=== PATIENT | male | born 1945 | race Caucasian/White ===

== ENCOUNTER 2022-09-09 16:01 | Outpatient (REF) | payer MEDICARE, SELFPAY ==
[2022-09-09 16:54] LABS: Anion Gap 10 (12-20); Blood Urea Nitrogen 16 mg/dL (9-16); Calcium 8.9 mg/dL (8.4-10.2); Carbon Dioxide 25 mmol/L (22-29); Chloride 108 mmol/L (96-108); Estimated Glomerular Filt Rate > 60; Potassium 3.7 mmol/L (3.3-5.1); Sodium 139 mmol/L (135-145)
== END 2022-09-09 16:02 | disposition home or self-care (01) ==
LOC: HO.LAB 16:01
PROVIDERS: PCP Internal Medicine; Visit Provider Internal Medicine Nephrology
DX: E87.1 Hypo-osmolality and hyponatremia (principal)
CPT/HCPCS: 36415; 80051; 82310; 82565; 84520

== ENCOUNTER 2023-03-03 15:52 | Outpatient (REF) | payer MEDICARE, SELFPAY ==
[2023-03-03 17:26] LABS: Anion Gap 10 (12-20); Blood Urea Nitrogen 12 mg/dL (9-16); Calcium 9.1 mg/dL (8.4-10.2); Carbon Dioxide 26 mmol/L (22-29); Chloride 101 mmol/L (96-108); Estimated Glomerular Filt Rate > 60; Glucose Random 86 mg/dL (60-115); Potassium 4.3 mmol/L (3.3-5.1); Sodium 133 mmol/L (135-145)
[2023-03-03 17:56] LABS: Folate 11.6 ng/mL (> or = 4.0); T4 Thyroxine 7.1 ug/dL (4.5-12.0); Thyroid Stimulating Hormone 1.32 uIU/mL (0.32-4.0); Vitamin B12 330 pg/mL (200-900)
[2023-03-08 07:32] LABS: Vitamin B1 18 nmol/L (8-30)
== END 2023-03-03 15:53 | disposition home or self-care (01) ==
LOC: HO.LAB 15:52
PROVIDERS: Visit Provider Psychiatry & Neurology Neurology
DX: G31.84 Mild cognitive impairment of uncertain or unknown etiology (principal)
CPT/HCPCS: 36415; 80048; 82607; 82746; 84425; 84436; 84443

== ENCOUNTER 2023-07-22 13:53 | Outpatient (REF) | payer MEDICARE, SELFPAY ==
[2023-07-22 15:00] LABS: Anion Gap 12 (12-20); Carbon Dioxide 25 mmol/L (22-29); Chloride 101 mmol/L (96-108); Potassium 4.4 mmol/L (3.3-5.1); Sodium 134 mmol/L (135-145)
== END 2023-07-22 13:54 | disposition home or self-care (01) ==
LOC: HO.LAB 13:53
PROVIDERS: PCP Internal Medicine; Visit Provider Psychiatry & Neurology Neurology
DX: G31.84 Mild cognitive impairment of uncertain or unknown etiology (principal)
CPT/HCPCS: 36415; 80051

== ENCOUNTER 2025-08-04 12:28 | Outpatient (AMB) | payer MEDICARE, SELFPAY ==
--- OUTSIDE RECORDS SUMMARY | 2024-03-02 08:00 | XMS_ITS ---
Author Organization [facility] Address [address] [place] [address] Care Team Providers Care Event Marketing Specialist Name Role Phone Caitlin Mccain MD Primary Care Provider Dave Munoz Unavailable [phone] Encounters Encounter Location Date Provider Diagnosis [facility] [address] [place] [address] 03/02/2024 Dave Barreto Plan Of Treatment Next Appt Details Provider Name:Dave Barreto , 11/10/2025 01:30:00 PM, [address] [facility], [place] [address], [place], [address], Progress Notes * Rick XIONG IIIDOB:12/1944 (79 yo M)Acc No.[id number]:03/02/2024 Progress Note Patient: Rick CESPEDES III Provider: Roma Barreto DPM :1945 A ge:78 Y S ex:Male Date:03/02/2024 Address:[address] [facility] Pcp:Caitlin Mccain MD Subjective: * Chief Complaints: * * Medical History: Objective: * Vitals: Assessment: Plan: * Treatment: * Images: * The named appointment provid er may or may not be the originator of this progress note, and it is not deemed complete until electronically signed by the appointment provider. Sign off status: Pending * Provider: Roma Barreto DPM Date: 0 03/02/2024 Generated for Pramod bey/Raúl/Carolyn on: 1 10/04/2024 03:17 PM EST
--- NOTE | 2025-08-04 13:05 | A.OFFVIS_ITS ---
Intake Visit Reasons: 6m Accompanied by: Spouse Allergies No Known Allergies Allergy (Verified 08/04/25 13:09) Medication List - Last Reconciled 08/04/25 by Tashia Mark CNP amlodipine 5 mg PO DAILY losartan 100 mg PO DAILY losartan 50 mg PO DAILY HPI Comments Details: He was here with his . She thought his memory may be getting a bit worse. He could be more forgetful and had trouble with dates and appointments, but he was managing the finances and there were no issues. He noted that he could be forg etful at times, especially with dates. He was staying busy with yard work and enjoyed doing puzzles. No falls. Sleep was okay, using CPAP. Drinking about 6 beers/day. He cut his drinking down to average 2- 3 glass of wine or beer from 10 cans of beer a day for the last 30 years. In April 2022, he fell and hit his head and was seen at [facility] where he was found to have low sodium. That was corrected and he was put on divalproex for mood stabilization. His sodium has been fine and blood pressure has been under control. He has had periods where he does not feel mentally clear, has periods of confusion and disorientation that come and go, and does not always keep track of time. He is a retired, lives at home and does some yard work and helps the in the house. [facility] Medical History (Updated 08/04/25 @ 13:07 by Tashia Mark CNP) Hyponatremia Review of Systems Const Denies chills, Denies daytime sleepiness, Denies difficulty sleeping, Denies fatigue, Denies fever(s), Denies frequent falls, Denies headache(s), Denies increased appetite, Denies poor appetite, Denies snoring, Denies weakness, Denies weight gain and Denies weight loss Eyes Denies loss of vision ENT Denies vertigo, Denies dizziness, Denies headache(s) and Reports neck pain Card Denies chest pain at rest, Denies chest pain with activity, Denies syncope, Denies leg edema, Denies palpitations, Denies dyspnea and Denies dyspnea on exertion Resp Denies cough, Denies dyspnea, Denies dyspnea on exertion and Denies snoring GI Denies abdominal pain, Denies constipation, Denies heartburn, Denies diarrhea and Denies nausea Denies urinary frequency, Denies urinary incontinence and Denies urinary urgency Musc Denies abnormal gait, Denies back pain, Denies myalgias, Denies arthralgias, Reports neck pain, Denies numbness and Denies tingling Neuro Denies abnormal gait, Denies vertigo, Denies dizziness, Denies syncope, Denies frequent falls, Denies headache(s), Denies lack of coordination, Denies loss of vision, Reports memory loss, Denies numbness, Denies Other visual disturbances, Denies restless legs, Denies seizure-like activity, Denies tingling, Denies paresthesias, Denies tremor(s) and Denies weakness Psych Denies anxiety, Denies depression, Denies auditory hallucinations, Reports memory loss and Denies visual hallucinations Endo Denies fatigue and Denies palpitations Physical Exam Const Other: General Appearance:? normal, in no acute distress. Heart:? S1, S2 normal, no murmurs. Lungs:? clear anteriorly and posteriorly. Musculoskeletal:? normal. Extremities:? no edema. Psych:? alert, as below. Neuro Other: Abnormal Neurological Findings:?MMSE 29/30 Mental Status: alert, as below. Cranial Nerves: Pupils are equal, round, and reactive to light. External ocular muscles are intact. Visual reyes are full, no ptosis. Face is symmetrical, no facial weakness or droop. Facial sensations are normal. Tongue protrudes in midline. Palate elevates symmetrically. Shoulder shrugging is normal Motor Examination: Normal muscle tone, bulk and strength. No atrophy or fasciculations. No drift of the extended upper extremities. DTR 2+. Plantars are flexor. Sensory Exam: Normal light touch, temperature, pinprick, vibration, and joint- position sensations. Rhomberg sign is absent. Coordination: No ataxia. No titubation. Gait Exam: Within normal limits. Cerebellar Signs: Lrasuv-fn-ebrs is okay. Extrapyramidal System: No tremor, rigidity with normal facial expressions. No bradykinesia. No bradyphrenia. Normal arm swing and posture. No propulsion or retropulsion. Speech: Normal. MMSE Level of Consciousness: Alert. Orientation: Knows correct year, month, day and season. Not date. Knows correct city, county and state. Knows correct location and floor. Registration: Able to register 3 objects. Attention: Serial 7's performed accurately to 65. Recall: Able to recall 3 out of 3 objects. Language: Normal spontaneous speech, fluency, repetition, naming, comprehension, reading, and writing. Total Score: 29/30. Results Reviewed Results Reviewed: 03/07/23 EEG- WNL 07/24/23 Labs : Low sodium of 134. CT shows mild diffuse volume loss. Assessment & Plan Assessment & Plan (1) MCI (mild cognitive impairment): Code(s): G31.84 - Mild cognitive impairment of uncertain or unknown etiology Category: Medical Plan: Discussed option to start medication (such as donepezil), declining at this time. Limit/avoid alcohol use. Stay physically, socially, and intellectually active. (2) Alcohol use disorder: Code(s): F10.90 - Alcohol use, unspecified, uncomplicated Category: Medical Plan . Coding Level of Care Code Est Pt Level 4 (76121) Diagnoses MCI (mild cognitive impairment) G31.84 Alcohol use disorder F10.90
--- OUTSIDE RECORDS SUMMARY | 2025-08-04 15:17 | XMS_ITS ---
Author Organization [facility] on Care Team Providers Care Glassine Machine Tender Name Role Phone Devora Flanagan Unavailable Unavailable Shae Chang Unavailable Unavailable Tevin Chavis Unavailable Unavailable Isaac Smith Unavailable Unavailable Leatha Almendarez Unavailable Unavailable Abdullahi Lizette Unavailable Unavailable Allergies and adverse reactions No Known Allergies Care Team Name Role Address Phone Organization Dates Isaac Smith PCP [address], [address], [place] (Office): : [facility] 05/31/2022 - 06/04/2022 Devora Flanagan [address] [place], [place], [facility], [place] States (Office): [phone] [facility] 05/31/2022 - 06/04/2022 Shae Chang [address] [place] [address], [address], [place] (Office): [facility] 05/31/2022 - 06/04/2022 Tevin Chavis [address] [place] [address], [address], [place] (Office): [facility] 05/31/2022 - 06/04/2022 Leatha Almendarez [address] [place] [address], [place], [address], [facility] (Office): : [facility] [place] 05/31/2022 - 06/04/2022 Lizette Fernando [address] [place] [address] [address], [place], [address], [facility] (Office): : [facility] 05/31/2022 - 06/04/2022 Immunizations Immunization Status Vaccine Details Vaccine Code CodeSystem Arsen e Notes SARS-COV-2 (COVID-19) completed SARS-COV-2 (COVID-19) vaccine, mRNA, spike protein, LNP, bivalent, preservative free, 50 mcg/0.5 mL or 25 mcg/0.25 mL dose Mfg: Moderna Step 2 of Multi-step with next step required 229 CVX created date: 05/31/2022 administered date: 11/28/2020 SARS-COV-2 (COVID-19) completed SARS-COV-2 (COVID-19) vaccine, D614, prefusion spike recombinant protein subunit (CoV2 preS dTM), AS03 adjuvant added, preservative free, 5mcg/0.5mL dose Mfg: Moderna Step 1 of Multi-step with next step required 225 CVX created date: 05/31/2022 administered date: 10/31/2020 SARS-COV-2 (COVID-19 BOOSTER) completed SARS-COV-2 (COVID-19) vaccine, mRNA, spike protein, LNP, preservative free, 100 mcg/0.5mL dose or 50 mcg/0.25mL dose Mfg: Moderna 207 CVX created date: 05/31/2022 administered date: 01/01/2022 SARS-COV-2 (COVID-19 BOOSTER) completed SARS-COV-2 (COVID-19) vaccine, mRNA, spike protein, LNP, preservative free, 100 mcg/0.5mL dose or 50 mcg/0.25mL dose Mfg: Moderna 207 CVX created date: 05/31/2022 administered date: 06/14/2021 Mental Status Section Date Assessment Total Score Description 06/04/2022 BIMS 11 moderate cognit alec impairment CAM 0 No delirium ind icated Insurance Providers Problems Problem # Description Date of onset Resolved Date Code CodeSystem Concern Status 1 ALCOHOL USE, UNSPECIFIED WITH ALCOHOL-INDUCED PERSISTING AMNESTIC DISORDER 06/04/[address] active 2 HYPO-OSMOLALITY AND HYPONATREMIA 06/04/[address] active 3 METABOLIC ENCEPHALOPATHY 06/04/[address] active 4 ALCOHOL DEPENDENCE, UNCOMPLICATED 05/31/[address] active 5 ESSENTIAL (PRIMARY) HYPERTENSION 05/31/[address] active 6 FALL ON SAME LEVEL FROM SLIPPING, TRIPPING AND STUMBLING WITHOUT SUBSEQUENT STRIKING AGAINST OBJECT, SUBSEQUENT ENCOUNTER 05/31/[address] active 7 HISTORY OF FALLING 05/31/[address] active 8 IMMUNE THROMBOCYTOPENIC PURPURA 05/31/[address] active 9 LOW BACK PAIN, UNSPECIFIED 05/31/[address] active Reason for Referral No Reasons for Referral Entered Social History Social History Observation Description Start Date End Date Code Code System Current Smoking Status Tobacco smoking consumption unknown 595733498 SNOMED CT Sex Assigned At Male 1945 [address]18-8 [facility] Gender Identity Sexual Orientation Vital Signs Code Code System Vitals Name Values and Units Timing Information 48840-1 [facility] Pain Level Value=0.0 06/04/2022 8462-4 LOINC Blood Pressure-Diastolic Value=66 Un its=mmHg 06/03/2022 8480-6 LOINC Blood Pressure-Systolic Vdovw=172 Un its=mmHg 06/03/2022 9279-1 LOINC Respiratory Rate Value=18.0 Units=/m in 06/03/2022 8310-5 LOINC Body Temperature Value=97.9 Units= F 06/03/2022 8867-4 LOINC Heart rate Value=79.0 Units=/min 01/2022 01786-9 LOINC O2 % BldC Oximetry Value=96.0 Units= % 06/03/2022 92140-8 LOINC Weight Zztdb=913.0 Units=Lbs 10/2021 8302-2 LOINC Height Value=73.0 Units=Inches 05/31/2022
--- OUTSIDE RECORDS SUMMARY | 2025-08-04 15:17 | XMS_ITS | Clinical Summary ---
Author Organization [facility] Address [address] [address] Phone Care Team Providers Care Commercial Property Manager Name Role Phone Aaron Rosario MD Primary Care Provider [phone] Allergies Active Allergy Reactions Criticality Noted Date Comments Sulfamethoxazole-Trimethoprim 2015 Severe rash Medications atenolol (TENORMIN) 50 mg tablet 2 Active losartan (COZAAR) 25 MG tablet Take 100 mg by mouth daily. 2 Active cyclobenzaprine (FLEXERIL) 5 MG tablet Take 1 tablet (5 mg total) by mouth 3 (three) times a day as needed. 15 tablet 2 Active divalproex (DEPAKOTE) 125 mg sprinkle capsule Take 125 mg by mouth 2 (two) times a day. 2 Active docusate sodium (COLACE) 100 MG capsule Take 100 mg by mouth daily. 2 Active fluticasone propionate (FLONASE) 50 mcg/actuation nasal spray 2 Active pyridoxine, vitamin B6, (B-6) 50 MG tablet Take 50 mg by mouth daily. Active traZODone (DESYREL) 50 MG tablet Take 50 mg by mouth nightly at bedtime. 2 Active atenolol (TENORMIN) 100 MG tablet Take 100 mg by mouth daily. 2 Active fluorouraciL (EFUDEX) 5 % creamIndication s:Verruca plantaris Apply topically daily. Apply to plantar wart of the left foot. Cover with waterproof bandage. Change daily. Use for 90 days. 40 g 1 2 Active Active Problems Problem Noted Date Diagnosed Date Verruca plantaris 08/07/2022 Encounters Date Type Department Care Team Description 07/15/2025 Procedure Pass [facility] Endoscopy Admitting Dept Virtual Department [address] [place] [address] 07/15/2025 Hospital Encounter [facility] Endoscopy Admitting Dept Virtual Department [address] [place] [address] Cameron Alejandre MD from Last 3 Months Immunizations Immunization Administration Dates Next Due COVID-19 (Pre-07/21) Moderna Vaccine, mRNA, PF 11/28/2020 Flu H1n1 Tiv Preservative Free 09/07/2009 INFLUENZA, SPLIT VIRUS, TRIV ALENT W/ PRESERVATIVE IM 06/23/2016,07/10/2014,06/16/2013,06/24,06/19/2011,07/03/2010,06/18/2009 ,06/29/2008,06/24/2007,07/23/2005 Influenza High-Dose Trivalen t Preservative Free IM 06/23/2019,06/19/2018,07/14/2017,07/14,06/15/2015 Influenza Quadrivalent Adjuv anted Preservative Free IM 06/28/2020 Pneumococcal conjugate PCV13 08/10/2015 Pneumococcal polysaccharide PPSV23 11/11/2017, Td, unspecified formulation 01/21/2019 Tdap 03/07/2020,08/06/2007 Zoster live 02/12/2012 Zoster recombinant 12/29/2020,08/29/2020 Social History Tobacco Use Types Packs/Day Years Used Date Smoking Tobacco: Never Smokeless Tobacco: Never Tobacco Cessation:Counseling Given: Not Answered Alcohol Use Standard Drinks/Week Comments Yes 7 (1 standard drink = 0.6 oz pur e alcohol) daily Education Answer Date Recorded Are you interested in more education? Not on logan e 01/23/2023 Are you concerned about learning? Not on file 01/23/2023 No 01/23/2023 No 01/23/2023 Digital Access Answer Date Recorded No 02/24/2023 No 02/24/2023 Reliable internet access at home? Not on file 02/24/2023 Device with a working camera? Not on file Sex and Gender Information Value Date Recorded Sex Assigned at Not on file Legal Sex Male 8:01 PM EST Gender Identity Not on file Sexual Orientation Not on file Last Filed Vital Signs Vital Sign Reading Time Taken Comments Blood Pressure 206/90 05/02/2022 6:09 PM EDT provider aware, both arms high bp, manually Pulse 58 05/02/2022 6:09 PM EDT Temperature 37.2 C (99 F) 05/02/2022 1:21 PM EDT Respiratory Rate 16 05/02/2022 6:09 PM EDT Oxygen Saturation 98% 05/02/2022 6:0 9 PM EDT Inhaled Oxygen Concentration - - Weight 72.6 kg (160 lb) 11/07/2022 2:57 PM EST Height 185.4 cm (6' 1 ) 11/07/2022 2:57 PM EST Body Mass Index 21.11 11/07/2022 2:57 PM EST Plan of Treatment Health Maintenance Due Date Last Done Comments BLOOD PRESSURE 1945 VALPROIC ACID (DEPAKENE) LEVEL 1945 DEPRESSION SCREENING 1957 HEPATITIS C SCREENING 1963 RSV VACCINE (1 - 1-dose 75+ series) 2020 INFLUENZA VACCINE (#1) 2025 2, 07/06/2021, 06/28/2020, Additional history exists COVID-19 VACCINE ( season) 2025 01/01/2022, 06/14/2021, 11/28/2020, Additional history exists CREATININE LEVEL 08/31/2025 08/31/2024 POTASSIUM LEVEL 2025 2024, 08/31/2024 LIPID PANEL 08/31/2029 08/31/2024, 08/13/2023 Adult Td,Tdap Booster 03/07/2030 03/07/2020 , 01/21/2019, 08/06/2007 PNEUMOCOCCAL VACCINES (50+ years) Completed 11/11/2017, 08/10/2015, 07/25/2010 ZOSTER VACCINES Completed 12/29/2020, 120 09/2019, 08/29/2020, Additional history exists SMOKING STATUS SCREENING (Once After 26 Yrs) Completed 10/22/2023 HEPATITIS A VACCINES Aged Out No long er eligible based on patient's age to complete this topic HIB VACCINES Aged Out No longer eligi ble based on patient's age to complete this topic MENINGOCOCCAL VACCINES (ACWY) Aged Out No longer eligible based on patient's age to complete this topic MENINGOCOCCAL VACCINES (B) Aged Out N o longer eligible based on patient's age to complete this topic Medical Devices Not on file Procedures Procedure Name Priority Date/Time Associated Diagnosis Comments POTASSIUM Routine 2024 4:27 PM EST Serum potassium elevated LIPID PANEL Routine 08/31/2024 10:03 AM EST Hypertension, unspecified type COMPREHENSIVE METABOLIC PANEL (CMP) Routine 08/31/2024 10:03 AM EST Hypertension, unspecified type from Last 3 Months or Most Recently Relevant to Health Maintenance Results * Potassium (2024 4:27 PM EST) POTASSIUM 3.8 3.3 - 5.1 mmol/L [facility] Blood 2024 4:27 PM EST 2024 4:30 PM EST us Caitlin Mccain MD LAB BLOOD BKR ORDERABLES Fi nal Result [address] [address] * (ABNORMAL) Comprehensive metabolic panel (08/31/2024 10:03 AM EST) SODIUM 135 133 - 146 mmol/L [facility] POTASSIUM 5.5(H) 3.3 - 5.1 mmol/L [facility] CHLORIDE 99 96 - 108 mmol/L [facility] CO2 27 21 - 35 mmol/L [facility] BUN 11 6 - 19 mg/dL [facility] CREATININE 0.70 0.5 - 1.5 mg/dL [facility] GLUCOSE 107(H) 70 - 99 mg/dL [facility] ALBUMIN 4.4 3.9 - 4.8 g/dL [facility] TOTAL PROTEIN 7.2 6.5 - 8.0 g/dL [facility] CALCIUM 9.9 8.4 - 10.3 mg/dL [facility] ALKALINE PHOSPHATASE 52 39 - 117 U/L [facility] TOTAL BILIRUBIN 0.7 0.0 - 1.2 mg/dL [facility] AST 23 0 - 37 U/L [facility] ALT 13 0 - 40 U/L [facility] GLOBULIN 2.8 1 - 4.8 g/dL [facility] EGFR 94 >59 mL/min/1.7 3m2 [facility] Comment:Estimated glomerular filtration rate calculated using the CKD-EPI refit equation. ANION GAP 15 10 - 20 mmol/L [facility] Blood 08/31/2024 10:0 3 AM EST 08/31/2024 10:08 AM EST us Caitlin Mccain MD LAB BLOOD BKR ORDERABLES Fi nal Result [facility] [address] [place] [address] * (ABNORMAL) Lipid panel (08/31/2024 10:03 AM EST) HDL 101 mg/dL [facility] Comment: Interpretation <40 mg/dL: Low HDL cholesterol (major risk factor for CHD) Greater than or equal to 60 mg/dL: High HDL cholesterol ( negative risk factor for CHD) HDL - cholesterol is affected by a number of factors, e.g. smoking, excerise, hormones, sex and age. CHOLESTEROL 239 0 - 240 mg/dL [facility] TRIGLYCERIDES 70 30 - 160 mg/dL [facility] LDL 124 50 - 129 mg/dL [facility] Comment: LDL levels in terms of risk for coronary heart disease: <100 mg/dL: Optimal 100-129 mg/dL: Near or above optimal 130-159 mg/dL: Borderline high 160-189 mg/dL: High >190 mg/dL: Very High CARDIAC RISK RATIO 2.4(L) 3.4 - 5.0 [facility] Blood 08/31/2024 10:0 3 AM EST 08/31/2024 10:08 AM EST Caitlin Mccain MD LAB BLOOD BKR ORDERABLES Fi nal Result [facility] [address] [place] [address] from Last 3 Months or Most Recently Relevant to Health Maintenance Insurance [employer] MEDEX SUPPLEMENT MEDICARE PART A & B [employer] MEDEX SUPPLEMENT MEDICARE PART A & B [employer] MEDEX SUPPLEMENT MEDICARE PART A & B [employer] MEDEX SUPPLEMENT MEDICARE PART A & B [employer] MEDEX SUPPLEMENT MEDICARE PART A & B [employer] MEDEX SUPPLEMENT MEDICARE PART A & B [employer] MEDEX SUPPLEMENT MEDICARE PART A & B [employer] MEDEX SUPPLEMENT MEDICARE PART A & B [employer] MEDEX SUPPLEMENT Care Teams Commercial Property Manager Relationship Specialty Start Date End Date Aaron Rosario MD [address] [place] [address] PCP - General Internal Medicine 04/19/22 Additional Source Comments The information contained in this document represents components of the legal health record. It is not the complete legal health record.[facility]
--- OUTSIDE RECORDS SUMMARY | 2025-08-04 15:17 | XMS_ITS | Encounter Summary ---
Author Organization [facility] Address [address] [place] [address] Phone Care Team Providers Care Reference Librarian Name Role Phone Aaron Rosario MD Primary Care Provider [phone] Encounter Details Date Type Department Care Team (Late st Contact Info) Description 07/15/2025 Hospital Encounter [facility] Endoscopy Admitting Dept Virtual Department [address] [place] [address] Cameron Alejandre MD [address] [address] [email or web address] Social History Tobacco Use Types Packs/Day Years Used Date Smoking Tobacco: Never Smokeless Tobacco: Never Alcohol Use Standard Drinks/Week Comments Yes 7 [...] on file Sexual Orientation Not on file documented as of this encounter Plan of Treatment Not on file documented as of this encounter Visit Diagnoses Not on filedocumented in this encounter Care Teams Reference Librarian Relationship Specialty Start Date End Date Aaron Rosario MD [address] [place] [address] PCP - General Internal Medicine 04/19/22 documented as of this encounter Additional Source Comments The information contained in this document represents components of the legal health record. It is not the complete legal health record.[facility]
--- OUTSIDE RECORDS SUMMARY | 2025-08-04 15:17 | XMS_ITS | Encounter Summary ---
Author Organization [facility] Address [address] [facility] [address] [place] [address] Phone Care Team Providers Care County Adviser Name Role Phone Aaron Rosario MD Primary Care Provider [phone] Encounter Details Date Type Department Care Team (Late st Contact Info) Description 07/15/2025 Procedure Pass [facility] Endoscopy Admitting Dept Virtual Department [address] [place] [address] Social History Tobacco Use Types Packs/Day Years [...] on filedocumented in this encounter Care Teams County Adviser Relationship Specialty Start Date End Date Aaron Rosario MD [address] [place] [address] PCP - General Internal Medicine 04/19/22 documented as of this encounter Additional Source Comments The information contained in this document represents components of the legal health record. It is not the complete legal health record.[facility]
--- OUTSIDE RECORDS SUMMARY | 2025-08-04 15:17 | XMS_ITS | Encounter Summary ---
Author Organization [facility] Address [address] [place] [address] Phone Care Team Providers Care Research Chemical Engineer Name Role Phone Aaron Rosario MD Primary Care Provider [phone] Encounter Details Date Type Department Care Team (Late st Contact Info) Description 08/13/2023 Ancillary Orders [facility], X-Ray - [address] [address] Caitlin Mccain MD [address] [place] [id number] [email or web address] Pain in pelvis; Hip pain, unspecified laterality Social History Tobacco Use Types Packs/Day Years [...] on file documented as of this encounter Results * XR HIP 2 VW RIGHT PLUS PELVIS (08/13/2023 1:50 PM EST) Anatomical Region Laterality Modality Hip, Pelvis Computed Radiogr aphy 08/15/2023 1:39 AM EST Impressions 08/15/2023 1:41 AM EST Mild hip osteoarthritis. Partially visualized lumbar spine degenerative change. Narrative 08/15/2023 1:41 AM EST XR HIP 2 VW RIGHT PLUS PELVIS Referring clinician's provided indication for this examination in Epic: Pain in pelvis COMPARISON: None FINDINGS: PELVIS: Pelvic ring intact. No displaced fracture. Degenerative changes of the lower lumbar spine, sacroiliac joints, and pubic symphysis. Gluteal enthesopathy at the iliac crests. Surgical clips overlying the central pelvis and left pelvic sidewall, presumably from prior prostatectomy. Artery severely calcified. RIGHT HIP: Mild hip joint space narrowing with marginal spurring. Gluteal enthesopathy at the greater trochanter. LEFT HIP: Mild joint space narrowing with marginal spurring. Gluteal enthesopathy at the greater trochanter.. Procedure Note Сергей Hensley MD - 08/15/2023 XR HIP 2 VW RIGHT PLUS PELVIS Referring clinician's provided indication for this examination in Epic:Pain in pelvis COMPARISON: None FINDINGS: PELVIS: Pelvic ring intact. No displaced fracture. Degenerative changes ofthe lower lumbar spine, sacroiliac joints, and pubic symphysis. Glutealenthesopathy at the iliac crests. Surgical clips overlying the centralpelvis and left pelvic sidewall, presumably from prior prostatectomy.Artery severely calcified. RIGHT HIP: Mild hip joint space narrowing with marginal spurring. Glutealenthesopathy at the greater trochanter. LEFT HIP: Mild joint space narrowing with marginal spurring. Glutealenthesopathy at the greater trochanter.. IMPRESSION: Mild hip osteoarthritis. Partially visualized lumbar spine degenerative change. us Caitlin Mccain MD IMG XR PELVIS Final Resul t documented in this encounter Visit Diagnoses Diagnosis Pain in pelvis Hip pain, unspecified laterality Pain in pelvis Hip pain, unspecified laterality documented in this encounter Care Teams Research Chemical Engineer Relationship Specialty Start Date End Date Aaron Rosario MD [address] [place] [address] PCP - General Internal Medicine 04/19/22 documented as of this encounter Additional Source Comments The information contained in this document represents components of the legal health record. It is not the complete legal health record.[facility]
--- OUTSIDE RECORDS SUMMARY | 2025-08-04 15:17 | XMS_ITS ---
Author Name [facility] Organization Unknown Care Team Organization Name Specialty Phone Email Start Date End Da te [facility] Rosario Primary Care 08/06/2022 05/17/2024
--- OUTSIDE RECORDS SUMMARY | 2025-08-04 15:17 | XMS_ITS | Patient Health Record ---
Author Organization [facility] [place] Address [address] [place] [address] Care Team Providers Care Senior Functional Analyst Name Role Phone Caitlin Mccain MD Primary Care Provider Dave Munoz Unavailable [phone] Allergies No Known Allergies Reason For Referral No Information Medications Medication SIG (Take, Route, Frequency, Duration) Notes Start Date End Date Status Losartan Potassium 100 MG 1 tablet Orall y Once a day; Duration: 30 day(s) Active Vitamin D3 Active Ammonium Lactate 12 % 1 application Exte rnally to affected areas of dry skin to feet except for between the toes Twice a day; Duration: 30 days Active amLODIPine Besylate 5 MG Oral; Duration: 90 Days Active Losartan Potassium 100 MG Oral; Duration: 90 Days Active amLODIPine Besylate 5 MG 1 tablet Orally Once a day; Duration: 30 day(s) Active Vitamin D3 50 MCG (2000 UT) 2 tablets Orally Once a day; Duration: 30 day(s) 10/29/2023 Active Immunizations Vaccine Route Administration Date Status Comme nts Influenza Unknown 05/30/2024 Administered Social History Tobacco Use: Social History Observation Description Date Details (start date - stop date) Never Smoker NA - NA Tobacco use other than smoking: Question Answer Notes Are you an other tobacco user? No Tobacco Control (Standard) Question Answer Notes Tobacco use: Nonsmoker Additional Findings: Tobacco non-user Current no nsmoker AUDIT-C (Standard) Question Answer Notes Did you have a drink containing alcohol in the p ast year? No Points 0 Interpretation Negative Problems Problem Type SNOMED Code ICD Code Onset Dates Problem Status W/U Status Risk Notes Problem Bilateral atherosclerosis of arteries of lower limbs (disorder) ([id number] ) Atherosclerosis of benton artery of both lower extremities, with unspecified presence of clinical manifestation (I70.203) Active confirmed Vital Signs Blood pressure diastolic 65 mm Hg 07/22/2025 Height 6 ft 1 in in 07/22/2025 Blood pressure systolic 128 mm Hg 07/22/2025 Weight 145 lbs 07/22/2025 BMI 19.13 kg/m2 07/22/2025 Procedures Procedure Date Ordered Date Performed Result Body Sit e 44270-BRYKCKE NAIL, 1-5 08/24/2024 N/A 88243-CVVT SKIN LESIONS, OVER 4 08/24/2024 N/A B1141-HBEGXZKB DYSTROPHIC NAILS ANY # 08/24/2024 N/A 64189-ITALLWH NAIL, 1-5 11/26/2024 N/A 39172-PCUB SKIN LESIONS, OVER 4 11/26/2024 N/A N4019-QEKAALDG DYSTROPHIC NAILS ANY # 11/26/2024 N/A 61291-UNOXQUK NAIL, 1-5 03/04/2025 N/A 70438-JCWJ SKIN LESIONS, OVER 4 03/04/2025 N/A C2615-TAERREPO DYSTROPHIC NAILS ANY # 03/04/2025 N/A 50273-LDLCIGH NAIL, 1-5 05/17/2025 N/A 98459-ZGZP SKIN LESIONS, OVER 4 05/17/2025 N/A D4278-HVMCYRVS DYSTROPHIC NAILS ANY # 05/17/2025 N/A 08357-XHGHMUE NAIL, 1-5 07/22/2025 N/A 27929-NKYA SKIN LESIONS, OVER 4 07/22/2025 N/A S5940-LMQXQPYN DYSTROPHIC NAILS ANY # 07/22/2025 N/A Encounters Encounter [facility] Date [facility] [address] [address] [facility]/24/2024 Dave Barreto Atherosclerosis of benton artery of both lower extremities, with unspecified presence of clinical manifestation I70.203 ; Tinea unguium B35.1 ; Pain in right toe(s) M79.674 and Pain in left toe(s) M79.[address] [facility] [address] 11/26/2024 Dave Kennedyunier Atherosclerosis of benton artery of both lower extremities, with unspecified presence of clinical manifestation I70.203 ; Tinea unguium B35.1 ; Pain in right toe(s) M79.674 ; Pain in left toe(s) M79.675 and Xerosis of skin L85.[address] [address] 03/04/2025 Daveroya KennedyEstevan Atherosclerosis of benton artery of both lower extremities, with unspecified presence of clinical manifestation I70.203 ; Tinea unguium B35.1 ; Pain in right toe(s) M79.674 ; Pain in left toe(s) M79.675 and Xerosis of skin L85.[address] [address] 05/17/2025 Dave Kennedyunier Atherosclerosis of benton artery of both lower extremities, with unspecified presence of clinical manifestation I70.203 ; Tinea unguium B35.1 ; Pain in right toe(s) M79.674 and Pain in left toe(s) M79.[address] [address] 07/22/2025 Dave Kennedyunier Atherosclerosis of benton artery of both lower extremities, with unspecified presence of clinical manifestation I70.203 ; Tinea unguium B35.1 ; Pain in right toe(s) M79.674 ; Pain in left toe(s) M79.675 ; Contusion of lesser toe of right foot without damage to nail, initial encounter S90.121A and Closed displaced fracture of middle phalanx of lesser toe of right foot, initial encounter S92.521A Assessments Encounter Date Diagnosis (ICD Code) Assessment Notes Treatment Notes Treatment Clinical Notes Section Notes 08/24/2024 Tinea unguium (ICD-10 - B35.1) 08/24/2024 Atherosclerosis of benton artery of both lower extremities, with unspecified presence of clinical manifestation (ICD-10 - I70.203) 11/26/2024 Tinea unguium (ICD-10 - B35.1) 11/26/2024 Atherosclerosis of benton artery of both lower extremities, with unspecified presence of clinical manifestation (ICD-10 - I70.203) 03/04/2025 Tinea unguium (ICD-10 - B35.1) 03/04/2025 Atherosclerosis of benton artery of both lower extremities, with unspecified presence of clinical manifestation (ICD-10 - I70.203) 05/17/2025 Tinea unguium (ICD-10 - B35.1) 05/17/2025 Atherosclerosis of benton artery of both lower extremities, with unspecified presence of clinical manifestation (ICD-10 - I70.203) 07/22/2025 Tinea unguium (ICD-10 - B35.1) 07/22/2025 Atherosclerosis of benton artery of both lower extremities, with unspecified presence of clinical manifestation (ICD-10 - I70.203) 07/22/2025 Pain in right toe(s) (ICD-10 - M79.674) 08/24/2024 Pain in right toe(s) (ICD-10 - M79.674) 05/17/2025 Pain in right toe(s) (ICD-10 - M79.674) 03/04/2025 Pain in right toe(s) (ICD-10 - M79.674) 11/26/2024 Pain in right toe(s) (ICD-10 - M79.674) 03/04/2025 Pain in left toe(s) (ICD-10 - M79.675) 11/26/2024 Pain in left toe(s) (ICD-10 - M79.675) 08/24/2024 Pain in left toe(s) (ICD-10 - M79.675) 05/17/2025 Pain in left toe(s) (ICD-10 - M79.675) 07/22/2025 Pain in left toe(s) (ICD-10 - M79.675) 03/04/2025 Xerosis of skin (ICD-10 - L85.3) 07/22/2025 Contusion of lesser toe of right foot without damage to nail, initial encounter (ICD-10 - S90.121A) 07/22/2025 Closed displaced fracture of middle phalanx of lesser toe of right foot, initial encounter (ICD-10 - S92.521A) 11/26/2024 Xerosis of skin (ICD-10 - L85.3) Plan Of Treatment Pending Test Test Name Order Date X ray : Foot, left 3V 12/16/2023 X ray : Foot, right 3V 07/22/2025 75387-CNQDJPG NAIL, 1-5 07/22/2025 58543-QNGARND NAIL, 1-5 12/16/2023 99956-MEDTNGY NAIL, 1-5 03/09/2024 15957-WBWRWGX NAIL, 1-5 06/01/2024 80901-DUZMMDT NAIL, 1-5 08/24/2024 52142-GNJQFEJ NAIL, 1-5 11/26/2024 61592-RNAVLIK NAIL, 1-5 03/04/2025 21940-BOFKJJL NAIL, 1-5 05/17/2025 06603-Igyu Destruction, 1-14 03/09/2024 33912-Drya Destruction, 1-14 12/16/2023 25537-VYTN SKIN LESIONS, OVER 4 06/01/20 24 22742-PTIL SKIN LESIONS, OVER 4 05/17/20 25 07617-DRMA SKIN LESIONS, OVER 4 03/04/20 25 39340-ZNUC SKIN LESIONS, OVER 4 11/26/19 25 78529-ZNZM SKIN LESIONS, OVER 4 08/24/20 24 91046-BVKS SKIN LESIONS, OVER 4 07/22/20 25 11184-HNXG SKIN LESIONS, OVER 4 03/09/20 24 43545-XGWY SKIN LESIONS, 2 TO 4 12/16/19 24 V0466-OSFZKCUA DYSTROPHIC NAILS ANY # J6362-VDKPKWDE DYSTROPHIC NAILS ANY # B8317-CCLOYNKC DYSTROPHIC NAILS ANY # N5279-MNICEDQF DYSTROPHIC NAILS ANY # Q7019-KPLSECII DYSTROPHIC NAILS ANY # W8542-PLZCXTUW DYSTROPHIC NAILS ANY # M8157-XERLTXFD DYSTROPHIC NAILS ANY # L2811-ASQKOTVS DYSTROPHIC NAILS ANY # Next Appt Details Provider Name:Dave Barreto , 11/10/2025 01:30:00 PM, [address], [address], [place], [address], Insurance Providers Payer Name Payer Address Payer Phone Subscriber Number Group Number Insured Name Patient Relationship to Insured Coverage Start Date Coverage End Date Medicare [employer] [address] [place] [address] [id number] Rick Xiong Self - patient is the insured [employer] [address] [place] [address] [phone] [id number] Rick Xiong Self - patient is the insured Medical (General) History Medical History History ICD Code Arthritis Back,Hip,and Knee pain Cancer Cataracts covid-19 Gout High blood pressure raynauds disease Measles Mumps Chicken pox Surgical History Surgery Date(Month/Year) prostate surgery 02/2005 hernia 2000
== END 2025-08-04 13:22 | disposition home or self-care (01) ==
LOC: HO.HSM 12:28
PROVIDERS: PCP Internal Medicine; Referring Provider Internal Medicine; Visit Provider Registered Nurse
DX: G31.84 Mild cognitive impairment of uncertain or unknown etiology (principal); F10.90 Alcohol use, unspecified, uncomplicated
CPT/HCPCS: 99214

== ENCOUNTER → 2025-08-04 12:28 | Outpatient (BNVA) | payer MEDICARE, SELFPAY | PROVIDERS: PCP Internal Medicine; Referring Provider Internal Medicine; Visit Provider Registered Nurse | DX: G31.84 Mild cognitive impairment of uncertain or unknown etiology (principal); F10.10 Alcohol abuse, uncomplicated; I10 Essential (primary) hypertension | CPT/HCPCS: 99212 ==